=== PATIENT | male | born 1945 | race Hispanic/Latino ===

== ENCOUNTER 2018-01-26 01:24 | Inpatient (IN) | payer MEDICARE ==
[2018-01-26] VITALS (15 sets, daily range): BP systolic 95–137; BP diastolic 32–78
[~2018-01-26] VITALS: Ht 167.6 cm; Wt 81.8 kg
[2018-01-26 03:04] LABS: BASOPHILS % (AUTO) 0.4 % (0.0-5.0); EOSINOPHILS % (AUTO) 0.2 % (0.0-8.0); HEMATOCRIT 39.2 % (42-54); LYMPHOCYTES % (AUTO) 4.5 % (21.0-51.0); MEAN CORPUSCULAR HEMOGLOBIN 29.9 pg (27.0-33.0); MEAN CORPUSCULAR VOLUME 87.9 fL (79-99); MONOCYTES % (AUTO) 5.3 % (3.0-13.0); NEUTROPHILS % (AUTO) 89.6 % (40.0-77.0); PLATELET COUNT (AUTO) 138 K/uL (130-400); RED BLOOD CELL COUNT(AUTO) 4.47 MIL/uL (4.50-6.20); WHITE BLOOD COUNT (AUTO) 11.8 K/uL (4.8-10.8)
[2018-01-26 03:15] LABS: ALBUMIN 3.5 g/dL (3.5-5.0); BILIRUBIN,TOTAL 1.5 mg/dL (0.2-1.0); CREATININE 1.5 mg/dL (0.5-1.5); POTASSIUM 3.5 mmol/L (3.5-5.1); TOTAL PROTEIN, SERUM 7.8 g/dL (6.0-8.3)
[2018-01-26 03:30] LABS: B-TYPE NATRIURETIC PEPTIDE 780 pg/mL (0-100)
[2018-01-26] MEDS ORDERED: IPRATROPIUM/ALBUTEROL SULFATE 3 ML SOLUTION IH ONE (03:30)
[2018-01-26 03:36] LABS: CREATINE KINASE MB 19.7 ng/mL (0.5-3.6)
[2018-01-26 03:38] LABS: TROPONIN I 7.84 ng/mL (0.00-0.06)
[2018-01-26] MEDS ORDERED: ASPIRIN 325 MG TABLET ONE (04:01)
[2018-01-26] MEDS ORDERED: NITROGLYCERIN 1GM/1 INCH PACKET TD ONE (04:01)
[2018-01-26] MEDS ORDERED: CEFTRIAXONE SODIUM 1 GM ONE (04:15)
[2018-01-26] MEDS ORDERED: ENOXAPARIN SODIUM 100 MG/1 ML SQ ONE (04:24)
[2018-01-26] MEDS ORDERED: CLOPIDOGREL BISULFATE 300 MG TAB ONE (04:25)
[2018-01-26] MEDS ORDERED: AZITHROMYCIN 250 MG TABLET PO ONE (04:38)
[2018-01-26] MEDS ORDERED: FUROSEMIDE 10 MG/ML 2ML VIAL ONE (06:21)
[2018-01-26] MEDS ORDERED: FUROSEMIDE 10 MG/ML 2ML VIAL IV ONE (06:21)
[2018-01-26 06:46] LABS: TROPONIN I 4.89 ng/mL (0.00-0.06)
[2018-01-26 08:24] LABS: INR 1.07 (0.85-1.15); PARTIAL THROMBOPLASTIN TIME 39.4 SEC (26.3-35.5); PROTHROMBIN TIME 11.2 SEC (9.6-11.6)
[2018-01-26 09:12] LABS: HEMATOCRIT 37.5 % (42-54); MEAN CORPUSCULAR HEMOGLOBIN 30.4 pg (27.0-33.0); MEAN CORPUSCULAR HGB CONC 34.2 g/dL (32.0-36.0); NUCLEATED RED BLOOD CELLS 0.1 % (0.0-0.19); PLATELET COUNT (AUTO) 132 K/uL (130-400); RED BLOOD CELL COUNT(AUTO) 4.22 MIL/uL (4.50-6.20); WHITE BLOOD COUNT (AUTO) 10.5 K/uL (4.8-10.8)
[2018-01-26 09:19] LABS: CREATININE 1.5 mg/dL (0.5-1.5); POTASSIUM 3.5 mmol/L (3.5-5.1)
[2018-01-26 10:05] LABS: LYMPHOCYTES % (MANUAL) 7 % (22-44); MAN.DIFF COMMENT-IMPRESSION MANUAL DIFFERENTIAL; MONOCYTES % (MANUAL) 8 % (2-9); PLATELET MORPHOLOGY COMMENT ADEQUATE; SEGMENTED NEUTROPHILS % 85 % (40-70)
[2018-01-26 11:03] LABS: CREATINE KINASE MB 11.4 ng/mL (0.5-3.6)
[2018-01-26 11:04] LABS: TROPONIN I 5.65 ng/mL (0.00-0.06)
[2018-01-26] MEDS ORDERED: METOPROLOL TARTRATE 25 MG TAB PO SCH (11:30)
[2018-01-26] MEDS ORDERED: SODIUM CHLORIDE 0.9% 1000ML 1,000 ML IV SCH ×2 (11:30→19:30)
[2018-01-26] MEDS ORDERED: INSU3INS3 SQ (12:52)
[2018-01-26] MEDS ORDERED: AMLO5TAB2 PO (12:52)
[2018-01-26] MEDS ORDERED: CARV25TA PO (12:52)
[2018-01-26] MEDS ORDERED: AEC81 PO (12:52)
[2018-01-26] MEDS ORDERED: PIOG1TAB7 PO (12:52)
[2018-01-26] MEDS ORDERED: LOSA1TAB54 PO (12:52)
[2018-01-26] MEDS ORDERED: ERGO500014 PO (12:52)
[2018-01-26] MEDS ORDERED: LOVA10TA2 PO (12:52)
[2018-01-26] MEDS ORDERED: CANA300T PO (12:52)
[2018-01-26] MEDS ORDERED: SITA100T12 PO (12:52)
[2018-01-26] MEDS ORDERED: ALBU8.5H8 IH (12:52)
[2018-01-26] MEDS ORDERED: IOPAMIDOL-370 100 ML VIAL IV ONE (14:19)
[2018-01-26] MEDS ORDERED: HEPARIN SODIUM 1000UNIT/ML 10ML VIAL ONE ×3 (14:19→17:47)
[2018-01-26] MEDS ORDERED: ISOVUE-370 50ML VIAL IV ONE (14:19)
[2018-01-26] MEDS ORDERED: LIDOCAINE HCL 1% 20 ML VIAL ONE (14:21)
[2018-01-26] MEDS ORDERED: HEPARIN 25000 UNITS/250 ML D5W 250 ML IV ONE (15:32)
[2018-01-26] MEDS ORDERED: HEPARIN 25000 UNITS/250 ML D5W 250 ML IV SCH (16:00)
[2018-01-26] MEDS ORDERED: CEFUROXIME 1.5GM+NS 100ML 100 ML IV SCH (16:30)
[2018-01-26 16:46] LABS: INR 1.11 (0.85-1.15); PROTHROMBIN TIME 11.6 SEC (9.6-11.6)
[2018-01-26] MEDS ORDERED: CEFUROXIME SODIUM 1.5 GM VIAL IVP ONE (17:00)
[2018-01-26] MEDS ORDERED: CEFUROXIME SODIUM 1.5 GM VIAL IVP SCH (17:00)
[2018-01-26 17:11] LABS: HEMOGLOBIN A1C 6.9 % (4.0-6.0)
[2018-01-26 17:16] LABS: CHOLESTEROL 143 mg/dL (<200); HDL CHOLESTEROL 54 mg/dL (29-71); LDL DIRECT 83 mg/dL (0-99); TRIGLYCERIDES 79 mg/dL (30-200)
[2018-01-26] MEDS ORDERED: EPINEPHRINE 1 MG/ML 30ML VIAL IJ ONE (17:32)
[2018-01-26] MEDS ORDERED: AMINOCAPROIC ACID 250 MG/ML 20 ML VIAL IV ONE (17:38)
[2018-01-26] MEDS ORDERED: EPINEPHRINE 1 MG/ML AMPULE ONE (17:38)
[2018-01-26] MEDS ORDERED: LIDOCAINE PF 2% 5ML ABBOJECT ONE (17:38)
[2018-01-26] MEDS ORDERED: GLYCOPYRROLATE 0.2 MG/ML 5 ML VIAL ONE (17:38)
[2018-01-26] MEDS ORDERED: ESMOLOL HCL 10 MG/ML 10 ML VIAL ONE (17:38)
[2018-01-26] MEDS ORDERED: ROCURONIUM BROMIDE 10MG/1ML 5ML VL ONE ×2 (17:38→17:43)
[2018-01-26] MEDS ORDERED: NOREPINEPHRINE BITARTRATE 1 MG/1 ML ML IV ONE (17:38)
[2018-01-26] MEDS ORDERED: PROTAMINE SULFATE 10 MG/ML 25ML VIAL IV ONE (17:38)
[2018-01-26] MEDS ORDERED: MILRINONE-D5W 20 MG/100 ML 0 ML IV ONE (17:38)
[2018-01-26] MEDS ORDERED: PROPOFOL 10 MG/ML 20ML VIAL IV ONE (17:39)
[2018-01-26] MEDS ORDERED: MIDAZOLAM HCL 1 MG/ML 5ML VIAL ONE (17:39)
[2018-01-26] MEDS ORDERED: PAPAVERINE HCL 30 MG/ML 2ML VIAL ONE (17:45)
[2018-01-26] MEDS ORDERED: NITROGLYCERIN 50 MG/D5% WATER 1 BOT ONE (17:46)
[2018-01-26] MEDS ORDERED: BACITRACIN 50,000 UNIT VIAL ONE (17:46)
[2018-01-26] MEDS ORDERED: FENTANYL CITRATE PF 50 MCG/1 ML 5ML AMP IV ONE ×3 (17:47→17:48)
[2018-01-26] MEDS ORDERED: THROMBIN-JMI 5000 UNIT/VIAL TP ONE (17:48)
[2018-01-26 17:53] LABS: PARTIAL THROMBOPLASTIN TIME > 120.0 SEC (26.3-35.5)
[2018-01-26] MEDS ORDERED: CEFUROXIME SODIUM 1.5 GM VIAL ONE (18:08)
[2018-01-26 18:13] LABS: ABG BASE EXCESS -3.7 mmol/L (-2.0-3.0); ABG HCO3 21.2 mmol/L (21.0-28.0); ABG OXYGEN SATURATION 98.6 % (95.0-99.0); ABG PCO2 38 mmHg (35-48)
[2018-01-26] MEDS ORDERED: SODIUM CHLORIDE 0.9% 500ML 500 ML IV SCH (19:25)
[2018-01-26] MEDS ORDERED: MORPHINE SULFATE 4 MG/1ML SYG IV PRN ×2 (19:30)
[2018-01-26] MEDS ORDERED: MAGNESIUM 2GM PREMIX 50ML 50 ML IV PRN (19:30)
[2018-01-26] MEDS ORDERED: PROPOFOL 1000 MG/100 ML 100 ML IV PRN (19:30)
[2018-01-26] MEDS ORDERED: SODIUM BICARB 8.4% 50ML SYRINGE IV PRN (19:30)
[2018-01-26] MEDS ORDERED: INSULIN REGULAR, HUMAN 3ML 100 UNIT in SODIUM CHLORIDE 0.9% 99 ML IV SCH ×2 (19:30)
[2018-01-26] MEDS ORDERED: CALCIUM GLUCONATE 1 GM in SODIUM CHLORIDE 0.9% 50 ML IV PRN (19:30)
[2018-01-26] MEDS ORDERED: DEXTROSE 50%-WATER 50 ML DISP.SYRIN IV PRN (19:30)
[2018-01-26] MEDS ORDERED: NITROGLYCERIN 50 MG/D5% WATER 250 BOT IV SCH (19:30)
[2018-01-26] MEDS ORDERED: ACETAMINOPHEN 650 MG SUPPOSITORY RC PRN (19:30)
[2018-01-26] MEDS ORDERED: SODIUM CHLORIDE 0.9% 250 ML IV PRN (19:30)
[2018-01-26] MEDS ORDERED: POTASSIUM PHOS 15 mMOL+NS250ML 250 ML IV PRN (19:30)
[2018-01-26] MEDS ORDERED: GLUCAGON 1MG KIT 1 MG ML IM PRN (19:30)
[2018-01-26] MEDS ORDERED: AMINOCAPROIC ACID 15,000 MG in SODIUM CHLORIDE 0.9% 250 ML IV SCH (19:30)
[2018-01-26] MEDS ORDERED: NICARDIPINE HCL 100 MG in SODIUM CHLORIDE 0.9% 100 ML IV PRN (19:30)
[2018-01-26] MEDS ORDERED: SODIUM CHLORIDE 0.9% 10 ML VIAL IVP PRN (19:30)
[2018-01-26] MEDS ORDERED: NOREPINEPHRINE 4MG/NS 250ML 250 ML IV PRN (19:30)
[2018-01-26] MEDS ORDERED: EPINEPHRINE 2 MG in SODIUM CHLORIDE 0.9% 250 ML IV PRN (19:30)
[2018-01-26] MEDS ORDERED: ONDANSETRON HCL MDV 20ML 2 MG/ML VIAL IV PRN (19:30)
[2018-01-26 20:06] LABS: ABG BASE EXCESS -4.8 mmol/L (-2.0-3.0); ABG HCO3 20.2 mmol/L (21.0-28.0); ABG OXYGEN SATURATION 98.2 % (95.0-99.0); ABG PCO2 37 mmHg (35-48)
[2018-01-26] MEDS ORDERED: SODIUM BICARB 50MEQ 50ML VIAL ONE (20:31)
[2018-01-26] MEDS ORDERED: MORPHINE SULFATE 10 MG/ML 1ML SYG ONE (20:58)
[2018-01-26] MEDS ORDERED: EPINEPHRINE 8 MG in SODIUM CHLORIDE 0.9% 250 ML IV PRN (21:00)
[2018-01-26 21:03] LABS: ABG BASE EXCESS -3.6 mmol/L (-2.0-3.0); ABG PCO2 37 mmHg (35-48)
[2018-01-26] MEDS ORDERED: EPHEDRINE SULFATE 50 MG/ML AMPULE ONE (21:07)
[2018-01-26 21:33] LABS: ABG HCO3 21.2 mmol/L (21.0-28.0); ABG OXYGEN SATURATION 93.9 % (95.0-99.0); ABG PCO2 44 mmHg (35-48); HEMATOCRIT 35.8 % (42-54); MEAN CORPUSCULAR HEMOGLOBIN 29.7 pg (27.0-33.0); MEAN CORPUSCULAR HGB CONC 33.5 g/dL (32.0-36.0); MEAN CORPUSCULAR VOLUME 88.7 fL (79-99); PLATELET COUNT (AUTO) 127 K/uL (130-400); RED BLOOD CELL COUNT(AUTO) 4.04 MIL/uL (4.50-6.20); RED CELL DISTRIBUTION WIDTH 13.6 % (11.0-15.5); WHITE BLOOD COUNT (AUTO) 18.9 K/uL (4.8-10.8)
[2018-01-26 21:42] LABS: CREATININE 1.4 mg/dL (0.5-1.5); MAGNESIUM 2.2 mg/dL (1.80-2.40); PHOSPHORUS 5.7 mg/dL (2.5-4.9)
[2018-01-26] MEDS: ALBUMIN (HUMAN) 5% 250 ML IV PRN ×2 (22:02→22:05)
[2018-01-26 22:34] LABS: ABG HCO3 23.2 mmol/L (21.0-28.0); ABG OXYGEN SATURATION 96.5 % (95.0-99.0); ABG PCO2 41 mmHg (35-48)
[2018-01-26] MEDS: POTASSIUM CHLORIDE 20MEQ/100ML 100 ML IV PRN (22:49)
[2018-01-26 23:30] LABS: ABG BASE EXCESS 0.4 mmol/L (-2.0-3.0); ABG HCO3 25.8 mmol/L (21.0-28.0); ABG OXYGEN SATURATION 96.1 % (95.0-99.0); ABG PCO2 45 mmHg (35-48)
[2018-01-27] VITALS (37 sets, daily range): BP systolic 84–156; BP diastolic 36–80
[2018-01-27 00:14] LABS: ABG BASE EXCESS -2.2 mmol/L (-2.0-3.0); ABG HCO3 22.9 mmol/L (21.0-28.0); ABG PCO2 41 mmHg (35-48)
[2018-01-27] MEDS ORDERED: SODIUM BICARB 50MEQ 50ML VIAL ONE (00:21)
[2018-01-27 01:57] LABS: ABG BASE EXCESS 4.3 mmol/L (-2.0-3.0); ABG HCO3 28.3 mmol/L (21.0-28.0); ABG PCO2 40 mmHg (35-48)
[2018-01-27] MEDS: CEFUROXIME SODIUM 1.5 GM VIAL IVP SCH ×2 (02:25→15:30)
[2018-01-27] MEDS ORDERED: CEFUROXIME 1.5GM+NS 100ML 100 ML IV SCH (03:30)
[2018-01-27] MEDS: HYDROCODONE/ACETAMINOPHEN 5/325 MG TAB PO PRN ×3 (03:41→23:43)
[2018-01-27 03:55] LABS: HEMATOCRIT 29.2 % (42-54); MEAN CORPUSCULAR HEMOGLOBIN 31.6 pg (27.0-33.0); MEAN CORPUSCULAR HGB CONC 36.2 g/dL (32.0-36.0); MEAN CORPUSCULAR VOLUME 87.3 fL (79-99); PLATELET COUNT (AUTO) 102 K/uL (130-400); RED BLOOD CELL COUNT(AUTO) 3.34 MIL/uL (4.50-6.20); RED CELL DISTRIBUTION WIDTH 13.8 % (11.0-15.5); WHITE BLOOD COUNT (AUTO) 8.7 K/uL (4.8-10.8)
[2018-01-27 04:05] LABS: CREATININE 1.5 mg/dL (0.5-1.5); MAGNESIUM 2.3 mg/dL (1.80-2.40); PHOSPHORUS 3.5 mg/dL (2.5-4.9); POTASSIUM 3.8 mmol/L (3.5-5.1)
[2018-01-27] MEDS: POTASSIUM CHLORIDE 20MEQ/100ML 100 ML IV PRN ×3 (05:17→22:02)
[2018-01-27] MEDS: ACETAMINOPHEN 325 MG TAB PO PRN ×2 (06:25→21:40)
[2018-01-27] MEDS: ASPIRIN 81MG TAB.CHEW PO SCH (10:22)
[2018-01-27] MEDS: ATORVASTATIN CALCIUM 40 MG TABLET PO SCH (10:22)
[2018-01-27] MEDS: FAMOTIDINE/PF 20 MG/2 ML VIAL IV SCH (10:22)
[2018-01-27] MEDS ORDERED: FUROSEMIDE 10 MG/ML 2ML VIAL IV SCH (20:00)
[2018-01-27 20:12] LABS: MAGNESIUM 2.3 mg/dL (1.80-2.40); POTASSIUM 3.7 mmol/L (3.5-5.1)
[2018-01-27 20:20] LABS: INR 1.12 (0.85-1.15); PARTIAL THROMBOPLASTIN TIME 36.9 SEC (26.3-35.5); PROTHROMBIN TIME 11.7 SEC (9.6-11.6)
[2018-01-28] VITALS (28 sets, daily range): BP systolic 107–173; BP diastolic 43–88
[2018-01-28] MEDS: CEFUROXIME SODIUM 1.5 GM VIAL IVP SCH (02:36)
[2018-01-28 04:07] LABS: HEMATOCRIT 26.4 % (42-54); MEAN CORPUSCULAR HEMOGLOBIN 30.5 pg (27.0-33.0); MEAN CORPUSCULAR HGB CONC 34.6 g/dL (32.0-36.0); MEAN CORPUSCULAR VOLUME 88.3 fL (79-99); PLATELET COUNT (AUTO) 104 K/uL (130-400); RED BLOOD CELL COUNT(AUTO) 2.99 MIL/uL (4.50-6.20); RED CELL DISTRIBUTION WIDTH 14.1 % (11.0-15.5); WHITE BLOOD COUNT (AUTO) 8.9 K/uL (4.8-10.8)
[2018-01-28 04:18] LABS: CREATININE 1.3 mg/dL (0.5-1.5); MAGNESIUM 2.3 mg/dL (1.80-2.40); PHOSPHORUS 2.9 mg/dL (2.5-4.9); POTASSIUM 3.9 mmol/L (3.5-5.1)
[2018-01-28] MEDS: POTASSIUM CHLORIDE 20MEQ/100ML 100 ML IV PRN (05:08)
[2018-01-28] MEDS ORDERED: LIDOCAINE HCL-MPF 1% 2ML VIAL IVP PRN (08:00)
[2018-01-28] MEDS ORDERED: POTASSIUM CHLORIDE 10% ELIXIR 20 MEQ/15 ML UDCUP PO PRN (08:00)
[2018-01-28] MEDS ORDERED: DEXTROSE 50%-WATER 50 ML DISP.SYRIN IV PRN (08:00)
[2018-01-28] MEDS ORDERED: POTASSIUM CHLORIDE 20 MEQ ERTAB PO PRN (08:00)
[2018-01-28] MEDS ORDERED: GLUCAGON 1MG KIT 1 MG ML IM PRN (08:00)
[2018-01-28] MEDS: FAMOTIDINE/PF 20 MG/2 ML VIAL IV SCH (08:45)
[2018-01-28] MEDS: ATORVASTATIN CALCIUM 40 MG TABLET PO SCH (08:45)
[2018-01-28] MEDS: ASPIRIN 81MG TAB.CHEW PO SCH (08:45)
[2018-01-28] MEDS: HYDROCODONE/ACETAMINOPHEN 5/325 MG TAB PO PRN (10:18)
[2018-01-28] MEDS: ACETAMINOPHEN 325 MG TAB PO PRN ×2 (10:34→20:59)
[2018-01-28] MEDS: INSULIN HUMULIN R 100 UNIT/ML 3ML SQ SCH ×3 (11:57→21:00)
[2018-01-28] MEDS: METOPROLOL TARTRATE 25 MG TAB PO SCH (20:58)
[2018-01-28] MEDS ORDERED: ALBUMIN (HUMAN) 5% 250 ML IV ONE (22:02)
[2018-01-29 03:52] VITALS: BP 134/83
[2018-01-29] MEDS: INSULIN HUMULIN R 100 UNIT/ML 3ML SQ SCH (06:00)
[2018-01-29 07:38] VITALS: BP 139/84
[2018-01-29] MEDS: ATORVASTATIN CALCIUM 40 MG TABLET PO SCH (10:24)
[2018-01-29] MEDS: FUROSEMIDE 20 MG TABLET PO SCH ×2 (10:24→17:40)
[2018-01-29] MEDS: ASPIRIN 81MG TAB.CHEW PO SCH (10:24)
[2018-01-29] MEDS: CLOPIDOGREL BISULFATE 75 MG TAB PO SCH (10:24)
[2018-01-29] MEDS: FAMOTIDINE/PF 20 MG/2 ML VIAL IV SCH (10:24)
[2018-01-29] MEDS: METOPROLOL TARTRATE 25 MG TAB PO SCH ×2 (10:29→22:59)
[2018-01-29 11:38] VITALS: BP 127/73
[2018-01-29] MEDS: INSULIN GLARGINE 100 UNITS/ML 10 ML VIAL SQ SCH ×2 (12:38→17:33)
[2018-01-29] MEDS ORDERED: INSULIN HUMULIN R 100 UNIT/ML 3ML SQ SCH ×2 (16:30→21:00)
[2018-01-29 16:43] VITALS: BP 121/76
[2018-01-29] MEDS: INSULIN LISPRO 100 UNIT/ML 3ML SQ SCH (17:44)
[2018-01-29 19:34] VITALS: BP 123/56
[2018-01-29 23:33] VITALS: BP 132/75
[2018-01-30 04:00] VITALS: BP 127/70
[2018-01-30 05:28] LABS: BASOPHILS % (AUTO) 0.3 % (0.0-5.0); EOSINOPHILS % (AUTO) 2.3 % (0.0-8.0); HEMATOCRIT 28.9 % (42-54); LYMPHOCYTES % (AUTO) 9.9 % (21.0-51.0); MEAN CORPUSCULAR HEMOGLOBIN 30.4 pg (27.0-33.0); MEAN CORPUSCULAR HGB CONC 34.7 g/dL (32.0-36.0); MEAN CORPUSCULAR VOLUME 87.7 fL (79-99); MONOCYTES % (AUTO) 8.8 % (3.0-13.0); NEUTROPHILS % (AUTO) 78.7 % (40.0-77.0); NUCLEATED RED BLOOD CELLS 0.1 % (0.0-0.19); PLATELET COUNT (AUTO) 152 K/uL (130-400); RED BLOOD CELL COUNT(AUTO) 3.29 MIL/uL (4.50-6.20); RED CELL DISTRIBUTION WIDTH 13.4 % (11.0-15.5); WHITE BLOOD COUNT (AUTO) 8.5 K/uL (4.8-10.8)
[2018-01-30 05:36] LABS: POTASSIUM 3.5 mmol/L (3.5-5.1)
[2018-01-30] MEDS ORDERED: POTASSIUM CHLORIDE 10 MEQ/TAB.SA PO ONE ×4 (05:56→06:58)
[2018-01-30] MEDS: INSULIN LISPRO 100 UNIT/ML 3ML SQ SCH ×2 (05:59→16:49)
[2018-01-30 07:45] VITALS: BP 133/75
[2018-01-30] MEDS: ATORVASTATIN CALCIUM 40 MG TABLET PO SCH (09:57)
[2018-01-30] MEDS: FAMOTIDINE/PF 20 MG/2 ML VIAL IV SCH (09:57)
[2018-01-30] MEDS: CLOPIDOGREL BISULFATE 75 MG TAB PO SCH (09:57)
[2018-01-30] MEDS: ASPIRIN 81MG TAB.CHEW PO SCH (09:57)
[2018-01-30] MEDS: FUROSEMIDE 20 MG TABLET PO SCH ×2 (09:57→16:46)
[2018-01-30] MEDS ORDERED: CARVEDILOL 6.25 MG TABLET PO ONE (10:01)
[2018-01-30 11:35] VITALS: BP 116/65
[2018-01-30 16:18] VITALS: BP 114/58
[2018-01-30 19:50] VITALS: BP 128/64
[2018-01-30] MEDS ORDERED: CARVEDILOL 6.25 MG TABLET PO SCH (21:00)
== END 2018-01-30 20:15 | DRG 233 ==
LOC: EDH 01:24 → EDHIP 04:25 → 2DH 09:14 → 2CV 19:01 → 2BH 01-28 10:44 → 2DH 01-28 23:38
PROVIDERS: ADMIT Internal Medicine; ATTEND Internal Medicine
PROC: 06BQ4ZZ Excision of Left Saphenous Vein, Percutaneous Endoscopic Approach (ICD-10-PCS; 2018-01-26)
PROC: B2111ZZ Fluoroscopy of Multiple Coronary Arteries using Low Osmolar Contrast (ICD-10-PCS; 2018-01-26)
PROC: B2151ZZ Fluoroscopy of Left Heart using Low Osmolar Contrast (ICD-10-PCS; 2018-01-26)
PROC: 02100Z9 Bypass Coronary Artery, One Artery from Left Internal Mammary, Open Approach (ICD-10-PCS; principal; 2018-01-26 17:50)
PROC: 4A023N7 Measurement of Cardiac Sampling and Pressure, Left Heart, Percutaneous Approach (ICD-10-PCS; 2018-01-26 17:50)
PROC: 021209W Bypass Coronary Artery, Three Arteries from Aorta with Autologous Venous Tissue, Open Approach (ICD-10-PCS; 2018-01-26 17:50)
DX: I21.4 Non-ST elevation (NSTEMI) myocardial infarction (principal); I50.41 Acute combined systolic (congestive) and diastolic (congestive) heart failure; E11.21 Type 2 diabetes mellitus with diabetic nephropathy; N18.3 Chronic kidney disease, stage 3 (moderate); I13.0 Hypertensive heart and chronic kidney disease with heart failure and stage 1 through stage 4 chronic kidney disease, or unspecified chronic kidney disease; D62 Acute posthemorrhagic anemia; E11.22 Type 2 diabetes mellitus with diabetic chronic kidney disease; E78.5 Hyperlipidemia, unspecified; I25.119 Atherosclerotic heart disease of native coronary artery with unspecified angina pectoris; I25.2 Old myocardial infarction; Z79.899 Other long term (current) drug therapy; Z83.3 Family history of diabetes mellitus
CPT/HCPCS: 33967; 36415; 71045; 71046; 80048; 80053; 80061; 82330; 82435; 82550; 82553; 82803; 82947; 82948; 83036; 83605; 83735; 83874; 83880; 84100; 84132; 84295; 84484; 85007; 85018; 85025; 85027; 85347; 85610; 85730; 86850; 86900; 86901; 86922; 93005; 93458; 93880; 94002; 94010; 94150; 94640; 97039; A4218; A4351; A7048; C1894; J0171; J0696; J0697; J1644; J1650; J1815; J1940; J2001; J2250; J2260; J2270; J2440; J2704; J2720; J3010; J3480; J3490; J7030; J7040; P9045; Q9967

== ENCOUNTER 2018-02-07 17:35 | Emergency (ER) | payer MEDICARE ==
[~2018-02-07 17:35] MED LIST: AEC81 PO; ALBU8.5H8 IH; AMLO5TAB2 PO; CANA300T PO; CARV25TA PO; ERGO500014 PO; INSU3INS3 SQ; LOSA1TAB54 PO; LOVA10TA2 PO; PIOG1TAB7 PO; SITA100T12 PO
[2018-02-07 18:10] LABS: BASOPHILS % (AUTO) 0.3 % (0.0-5.0); EOSINOPHILS % (AUTO) 1.2 % (0.0-8.0); HEMATOCRIT 31.4 % (42-54); LYMPHOCYTES % (AUTO) 8.9 % (21.0-51.0); MEAN CORPUSCULAR HEMOGLOBIN 29.1 pg (27.0-33.0); MEAN CORPUSCULAR HGB CONC 33.2 g/dL (32.0-36.0); MEAN CORPUSCULAR VOLUME 87.4 fL (79-99); NEUTROPHILS % (AUTO) 81.6 % (40.0-77.0); PLATELET COUNT (AUTO) 336 K/uL (130-400); RED BLOOD CELL COUNT(AUTO) 3.59 MIL/uL (4.50-6.20); RED CELL DISTRIBUTION WIDTH 14.7 % (11.0-15.5); WHITE BLOOD COUNT (AUTO) 9.5 K/uL (4.8-10.8)
[2018-02-07 18:25] LABS: POTASSIUM 3.8 mmol/L (3.5-5.1)
[2018-02-07 18:27] LABS: INR 1.18 (0.85-1.15); PARTIAL THROMBOPLASTIN TIME 29.5 SEC (26.3-35.5); PROTHROMBIN TIME 12.3 SEC (9.6-11.6)
[2018-02-07 18:30] LABS: ALBUMIN 2.6 g/dL (3.5-5.0); BILIRUBIN,TOTAL 0.7 mg/dL (0.2-1.0); TOTAL PROTEIN, SERUM 6.4 g/dL (6.0-8.3)
[2018-02-07 19:05] LABS: APPEARANCE,URINE Clear (CLEAR); BILIRUBIN,URINE Negative (NEGATIVE); COLOR,URINE Yellow (YELLOW); GLUCOSE, URINE (UA) >=1000 mg/dL (NEGATIVE); KETONES,URINE Negative (NEGATIVE); LEUKOCYTE ESTERASE ,URINE Negative (NEGATIVE); NITRATE,URINE Negative (NEGATIVE); OCCULT BLOOD,URINE Negative (NEGATIVE); PH,URINE 6.5 (5.0-8.0); PROTEIN,URINE Negative (NEGATIVE)
[2018-02-07 19:17] LABS: RBC,URINE 0-1 /HPF (0-1); WBC,URINE 0-1 /HPF (0-1)
[2018-02-07 19:18] LABS: BACTERIA,URINE Rare /HPF (None Seen); SQUAMOUS EPITHELIAL CELL,UR None Seen /HPF (0-2)
== END 2018-02-08 00:31 | disposition home or self-care (01) ==
LOC: EDH 17:35
DX: T81.31XA Disruption of external operation (surgical) wound, not elsewhere classified, initial encounter (principal); J90 Pleural effusion, not elsewhere classified; K80.20 Calculus of gallbladder without cholecystitis without obstruction; R79.1 Abnormal coagulation profile; E11.9 Type 2 diabetes mellitus without complications; I10 Essential (primary) hypertension; E78.5 Hyperlipidemia, unspecified; Z95.1 Presence of aortocoronary bypass graft
CPT/HCPCS: 36415; 71046; 76700; 80053; 81001; 84484; 85025; 85610; 85730; 87040

== ENCOUNTER → 2020-02-28 | Outpatient (CLI) | payer MEDICARE ==
[~2020-02-28] MED LIST changes: +AMLO-257 PO; -AMLO5TAB2 PO
== END | disposition home or self-care (01) ==
LOC: RAH 09:03
PROVIDERS: ATTEND Family Medicine
DX: I65.23 Occlusion and stenosis of bilateral carotid arteries (principal)
CPT/HCPCS: 93880

== ENCOUNTER 2020-04-10 21:39 | Inpatient (IN) | payer MEDICARE ==
[2020-04-10] MEDS ORDERED: ONDANSETRON HCL 4 MG/2 ML VIAL ONE (22:41)
[2020-04-10] MEDS ORDERED: SUCRALFATE 1 GM TABLET ONE (22:41)
[2020-04-10] MEDS ORDERED: FAMOTIDINE/PF 20 MG/2 ML VIAL IV ONE (22:42)
[2020-04-10] MEDS ORDERED: SODIUM CHLORIDE 0.9% 1000ML 1,000 ML IV ONE (23:56)
[2020-04-11] MEDS ORDERED: ZOSYN 3.375GM+NS 50ML 50 ML IV ONE ×2 (00:40→09:10)
[2020-04-11] MEDS ORDERED: LACTATED RINGERS 1000ML 1,000 ML IV ONE (02:11)
[2020-04-11] MEDS ORDERED: LACTATED RINGERS 1000ML 1,000 ML IV SCH (02:45)
[2020-04-11] MEDS ORDERED: ONDANSETRON HCL 4 MG/2 ML VIAL IVP PRN (02:45)
[2020-04-11] MEDS ORDERED: HYDROMORPHONE HCL 0.5 MG/0.5 ML ML IVP PRN (02:45)
[2020-04-11] MEDS ORDERED: PHARMACY COMMUNICATION MISC SCH (02:45)
[2020-04-11] MEDS ORDERED: ZOSYN 3.375GM+NS 50ML 50 ML IV SCH (03:00)
[2020-04-11] MEDS ORDERED: FAMOTIDINE/PF 20 MG/2 ML VIAL IV SCH (09:00)
[2020-04-11] MEDS ORDERED: FAMOTIDINE/PF 20 MG/2 ML VIAL IV ONE (09:10)
--- NOTE | 2020-04-11 15:46 | NUR ---
SPOKE TO SPOUSE ON THE [facility]- LIVES WITH SPOUSE PIA, ACTIVE, INDPE, DIRVES, NO DME, HOME SAFE/ACCESSIBLE, USED TO BE SEPARIATD, NOW TOGETHER WITH SPOUSE- SPOUSE STATES SHE IS ONHER WAY TO [employer] PATIENT, REED Dutta VINCE SUPRISED, CALL TO NURSE SANNA, NO ORDER FOR DISCHARGE, PATIENT GOING AMA BECAUSE HE STATES THAT 'THE MD THAT ROUNDED, SHE TOLD ME SHE WAS GOING TO SEND ME HOME" CALL BACK TO SPOUSE TO LET HER KNOW, SPOUSE STATES PATIENT IS TOO FRIGHTENED TO STAY IN ER. ADVISED HER TO CALL HER MD. PATIENT NOT CLEARED FOR DISCHARGE, MAY BE IN A LOT OF PAIN, SPOSUE STATES SHE BELIEVES SHE WILL HAVE TO BRING HIM BACK TEXT TO [employer] TO ADVISE PT GOING AMA Addendum: 04/11/20 at 1555 by RICKY MILLS RN CM Amended: Links added.
== END 2020-04-11 16:10 | disposition left against medical advice (07) | DRG 440 ==
LOC: EDH 21:39 → EDHIP 04-11 01:53
PROVIDERS: ADMIT Internal Medicine Critical Care Medicine; ATTEND Internal Medicine Critical Care Medicine
DX: K85.10 Biliary acute pancreatitis without necrosis or infection (principal); K80.20 Calculus of gallbladder without cholecystitis without obstruction; E11.9 Type 2 diabetes mellitus without complications; E78.5 Hyperlipidemia, unspecified; I10 Essential (primary) hypertension; I25.10 Atherosclerotic heart disease of native coronary artery without angina pectoris; Z53.29 Procedure and treatment not carried out because of patient's decision for other reasons; Z20.828 Contact with and (suspected) exposure to other viral communicable diseases; Z95.1 Presence of aortocoronary bypass graft; Z79.82 Long term (current) use of aspirin; Z79.899 Other long term (current) drug therapy; Z79.4 Long term (current) use of insulin